=== PATIENT | male | born 1975 | race Caucasian/White ===

== ENCOUNTER 2017-07-11 13:45 | Emergency (ER) | payer BC ==
[2017-07-11 14:01] VITALS: BP 168/100; PULSE 73; RESP 16; TEMP 98.4; O2SAT 97
[2017-07-11] MEDS ORDERED: TETANUS/DIPHTHERIA TOXOID ADULT 0.5 ML VIAL IM ONE (14:45)
--- NOTE | 2017-07-11 14:52 | PD ---
HPI Chief Complaint: Laceration/Skin Injury Time Seen by Provider: 14:18 Travel History International Travel<30 days: No Contact w/Intl Traveler<30days: No Traveled to known affect area: No History of Present Illness HPI 41-year-old male presents emergency department for evaluation of a laceration to the left mid anterior reyes that occurred approximately 5 hours ago. Patient states that he was taking out the garbage when a broken tile tore through and hit him in the reyes. Says that he tried to control the bleeding on his own however he was unsuccessful. Says he went to an urgent care and they attempted to control the bleeding as well, however they are concerned that it may have hit an artery and advised to come to the emergency department for further evaluation. Says that there was approximately 2 cm of tile that went into his leg. He denies numbness or tingling of the extremity. He has no other complaints today. His last tetanus vaccination was over 10 years ago. Denies chronic medical issues medication use. PFSH Social History Tobacco Use: No Allergies-Medications (Allergen,Severity, Reaction): Coded Allergies: No Known Drug Allergies (Verified Allergy, Unknown, 07/11/17) Reported Meds & Prescriptions Reported Meds & Active Scripts Active Keflex (Cephalexin) 500 Mg Cap 500 Mg PO Q8H 7 Days Review of Systems Except as stated in HPI: all other systems reviewed are Neg Physical Exam Narrative GENERAL: Well-nourished, well-developed patient. SKIN: Focused skin assessment warm/dry. Left mid anterior reyes-1 cm laceration, actively oozing blood, no significant ecchymosis or hematoma. HEAD: Normocephalic. EYES: No scleral icterus. No injection or drainage. NECK: Supple, trachea midline. No JVD or lymphadenopathy. CARDIOVASCULAR: Regular rate and rhythm without murmurs, gallops, or rubs. RESPIRATORY: Breath sounds equal bilaterally. No accessory muscle use. MUSCULOSKELETAL: No cyanosis, or edema. Left lower extremity-full range of motion of ankle and toes. Neurovascular intact BACK: Nontender without obvious deformity. No CVA tenderness. Data Data Last Documented VS Vital Signs Date Time Temp Pulse Resp B/P (MAP) Pulse Ox O2 Delivery O2 Flow Rate FiO2 07/11/17 14:01 98.4 73 16 168/100 (122) 97 Orders Orders Tibia/Fibula (Ap/Lat) (07/11/17 ) Tetanus/Diphtheria Tox Adult (Tetanus/Di (07/11/17 14:45) Ed Discharge Order (07/11/17 15:45) [facility] Medical Decision Making Medical Screen Exam Complete: Yes Emergency Medical Condition: Yes Differential Diagnosis Left lower extremity laceration, avulsion, abrasion, puncture wound Narrative Course 41y male presents emergency department for evaluation of a laceration to the left lower extremity. Site was irrigated and cleansed thoroughly with Betadine and saline. X-ray ordered to rule out foreign body. Last Impressions Tibia/Fibula X-Ray 07/11/17 0000 Signed Impressions: Service Date/Time: Tuesday, July 11, 2017 15:14 - CONCLUSION: No foreign bodies are identified. No fracture. Jamaal Alanis MD Laceration repair completed. There is no active bleeding after the repair. No evidence of developing hematoma or ecchymosis. Patient given antibiotics for prophylaxis as this may have been a partial puncture wound as well. Tetanus administered in the emergency room. He is advised to monitor for signs of infection. Advised to keep area clean and dry. Wound care advised. Return for worsening or persistent symptoms. Procedures Procedure Narrative LACERATION LOCATION: Left anterior reyes LENGTH: 1 cm NUMBER OF STITCHES/JOANNE: 3 5-0 Prolene REPAIR: The area of the laceration was prepped with Betadine and sterilely draped. The laceration was infiltrated with 2% lidocaine without epinephrine. The wound was copiously irrigated and explored without evidence of foreign body, tendon injury or neurovascular injury. The wound was closed using Betadine and sterile saline. This was a single layer repair. A sterile dressing was applied. The patient was advised to keep the dressing clean and dry. Patient tolerated the procedure well. Diagnosis Primary Impression: Laceration Referrals: Primary Care Physician Additional Instructions: Follow up with your primary care physician within 2-3 days. Keep area clean and dry for 24 hours. After 24 hours, you may bathe as normal but dry the area thoroughly. You may use [id number] triple antibiotic ointments for your injury daily. Change dressings daily. If bleeding starts, apply pressure and elevate the area. If you developed increased redness, swelling, or pain return to the emergency department as this could be a sign of infection. Suture removal in 7-10 days Scripts Cephalexin (Keflex) 500 Mg Cap 500 MG PO Q8H for Infection for 7 Days, #21 CAP 0 Refills Prov: Bennett Augustin MD 07/11/17 Disposition: 01 DISCHARGE HOME Condition: Stable Lelia White July 11, 2017 14:52
--- NOTE | 2017-07-11 15:32 | RADRPT ---
EXAM DATE/TIME: 07/11/2017 15:14 [place] COMPARISON: No previous studies available for comparison. INDICATIONS : Mid lateral left lower leg laceration. Patient cut his leg on tile this afternoon. Evaluate for for eign body. MEDICAL HISTORY : None. SURGICAL HISTORY : None. ENCOUNTER: Initial ACUITY: 1 day PAIN SCORE: 4/10 LOCATION: Left lateral lower leg. FINDINGS: Two view examination of the left tibia demonstrates no evidence of fracture or dislocation. Bony min eralization is normal. The soft tissue structures are intact. CONCLUSION: No foreign bodies are identified. No fracture. Jamaal Alanis MD on July 11, 2017 at 15:29 Board Certified Radiologist. This report was verified electronically.
[2017-07-11] MEDS ORDERED: CEPH-460 PO (15:44)
== END 2017-07-11 16:04 | disposition home or self-care (01) ==
LOC: PHEFT 13:45
DX: S81.812A Laceration without foreign body, left lower leg, initial encounter (principal); W26.8XXA Contact with other sharp object(s), not elsewhere classified, initial encounter; Z23 Encounter for immunization
CPT/HCPCS: 12001; 73590; 90471; 90714